=== PATIENT | female | born 1990 | race African-American/Black ===

== ENCOUNTER 2017-05-17 16:34 | Emergency (ER) | payer OTHER ==
[~2017-05-17] VITALS: Ht 172.7 cm; Wt 73.6 kg
[2017-05-17 17:29] LABS: HEMATOCRIT 36.6 % (36.0-46.0); HEMOGLOBIN 12.3 G/DL (11.9-15.5); MCH 27.5 PG (29.0-34.0); MCHC 33.6 G/DL (30.0-36.0); MCV 81.9 FL (83-99); PLATELET COUNT 348 K/uL (156-360); RBC DIS.WIDTH-CV 15.5 % (11.8-14.6); RBC DIS.WIDTH-SD 46.8 % (39-53); RED BLOOD COUNT 4.47 M/uL (3.80-5.20); WHITE BLOOD COUNT 9.9 K/uL (4.1-10.2)
[2017-05-17 17:43] LABS: CHLORIDE 101 mEq/L (99-109); SODIUM 138 mEq/L (136-147)
[2017-05-17 17:45] LABS: GLUCOSE 92 mg/dL (70-99)
[2017-05-17 17:49] LABS: D-DIMER ELISA < 150.00 ng/mLDDU (<230); GFR ESTIMATE (CALCULATED) > 59 mL/min/
[2017-05-17 17:50] LABS: UREA NITROGEN (BUN) 13 mg/dL (9-23)
[2017-05-17 18:03] LABS: QUANTITATIVE HCG < 4.0 MIU/ML
[2017-05-17 18:18] LABS: TROP-I INTERPRETATION NEGATIVE; TROPONIN-I < 0.01 ng/mL (0.0-0.30)
[2017-05-17 21:18] VITALS: BP 130/67
== END 2017-05-17 21:29 | disposition home or self-care (01) ==
LOC: EME 16:34
DX: F41.0 Panic disorder [episodic paroxysmal anxiety] (principal); R00.2 Palpitations; F14.10 Cocaine abuse, uncomplicated; F17.200 Nicotine dependence, unspecified, uncomplicated
CPT/HCPCS: 71046; 80048; 82374; 84484; 84702; 85027; 85379; 93005; 99281; 99285; J2060; J7030